=== PATIENT | male | born 1975 | race Caucasian/White ===

== ENCOUNTER 2024-09-13 00:20 | Day surgery (SDC) | payer OTHER, SELFPAY ==
[2024-08-23 13:09] VITALS: BMI 33.4
[2024-09-13 08:18] VITALS: BP 135/99; PULSE 58; RESP 19; TEMP 36.6; O2SAT 97; BMI 34.1
[2024-09-13] MEDS: LACTATED RINGERS 1,000 ML 150 ML IV CONT (08:32)
--- NOTE | 2024-09-13 08:46 | P.PNAN_ITS ---
Anes - Initial Pre Proc Eval Procedure: Operation Date: 09/13/24 09:30 Proposed Procedures p Screening Colonoscopy - Skyler Pollard MD Date/Time: 09/13/24 08:46 Surgeon: Skyler Pollard MD Pre Op Diagnosis: neoplasm screening Patient Data Age: 49 Gender: M Height: 1.88 m Weight: 120.6 kg Last Vital Signs Temp 97.8 F 09/13/24 08:18 Pulse 58 L 09/13/24 08:18 Resp 19 09/13/24 08:18 BP 135/99 H 09/13/24 08:18 Pulse Ox 97 09/13/24 08:18 O2 Del Method Room Air 09/13/24 08:18 Allergies Allergy/AdvReac Type Severity Reaction Status Date / Time No Known Allergies Allergy Mild Verified 09/13/24 08:16 Home Medications Medication Instructions Recorded Confirmed Type cyanocobalamin (vitamin B-12) See Rx Instructions .Route .COMPLEX 08/23/24 09/13/24 History 1,000 mcg tablet fluticasone propionate 50 2 spray intranasal DAILY PRN 08/23/24 09/13/24 History mcg/actuation nasal Allergy Symptoms spray,suspension losartan 50 mg tablet 50 mg PO DAILY 08/23/24 09/13/24 History omeprazole 20 mg capsule,delayed 20 mg PO DAILY 08/23/24 09/13/24 History release semaglutide (weight loss) 0.5 0.5 mg subcut WEEKLY 08/23/24 09/13/24 History mg/0.5 mL subcutaneous pen injector (Coco) Patient hx anesthesia problems: none Family hx anesthesia problems: none Results Review: All pre-operative results and documents have been reviewed as part of the pre- operative evaluation. PMFSH Social History Social History Smoking status: Never smoker Substance use: never Living arrangements: with family Spiritual care concerns: No Anes - Eval Final PreProcedure Day of Procedure 09/13/24 08:46 Patient weight: obese Heart: regular rate and rhythm Lungs: clear to auscultation Airway: Mallampati scale class II Neurological: alert and oriented Last oral intake: >/= 8 hours ASA classification: III Emergent: no Anesthetic plan: proceed Anesthesia type and monitoring: general GIVS and standard monitoring Results Review: All pre-operative results and documents have been reviewed as part of the pre- operative evaluation. Informed Consent: The patient's anesthetic plan and its attendant risks and benefits were discussed with the patient/family/POA. Questions were solicited and answers provided to the satisfaction of the patient/family/POA.
--- NOTE | 2024-09-13 08:52 | PM.HPGS ---
History of Present Illness History of Present Illness Consent: Risks, benefits, and alternatives have been discussed and questions answered. Patient agrees to proceed with procedure. Chief complaint: neoplasm screening Narrative: Kapil Hall is a 49 year old male here for first screening colonoscopy Review of Systems Review of Systems: All systems reviewed & are unremarkable except as noted in HPI and below PMFSH Past Medical History Medical History (Updated 09/13/24 @ 08:53 by Skyler Pollard MD) Colon cancer screening Social History Social History Smoking status: Never smoker Substance use: never Living arrangements: with family Spiritual care concerns: No Meds Home Medications and Allergies Home Medications Medication Instructions Recorded Confirmed Type cyanocobalamin (vitamin B-12) See Rx Instructions .Route .COMPLEX 08/23/24 09/13/24 History 1,000 mcg tablet fluticasone propionate 50 2 spray intranasal DAILY PRN 08/23/24 09/13/24 History mcg/actuation nasal Allergy Symptoms spray,suspension losartan 50 mg tablet 50 mg PO DAILY 08/23/24 09/13/24 History omeprazole 20 mg capsule,delayed 20 mg PO DAILY 08/23/24 09/13/24 History release semaglutide (weight loss) 0.5 0.5 mg subcut WEEKLY 08/23/24 09/13/24 History mg/0.5 mL subcutaneous pen injector (Wegovy) Allergies Allergy/AdvReac Type Severity Reaction Status Date / Time No Known Allergies Allergy Mild Verified 09/13/24 08:16 Vital Signs Vital Signs - 24 hr 09/13/24 08:18 Temperature 97.8 F Pulse Rate 58 L Respiratory Rate 19 Blood Pressure 135/99 H Pulse Oximetry 97 Oxygen Delivery Room Air Exam Const: General: comfortable and no acute distress HENMT: Face/Nose/Sinus: Normal nares present Eyes: General: appearance normal, both eyes and all related structures Neck: Neck: no JVD Resp: Auscultation: clear to auscultation bilaterally Cardio: Rate: regular rate Rhythm: regular rhythm GI: Inspection: non-distended GI Palp: Yes Soft to palpation Skin: General skin exam: normal color Neuro: General: gait normal Speech: normal speech Extrem: General: normal to inspection Psych: Mental Status: mental status grossly normal Assessment and Plan Assessment and plan (1) Colon cancer screening: Code(s): Z12.11 - Encounter for screening for malignant neoplasm of colon Status: Acute Assessment and Plan: colonoscopy
[2024-09-13 09:12] VITALS: BP 147/71; PULSE 78; RESP 16; O2SAT 97
[2024-09-13 09:22] VITALS: BP 129/84; PULSE 74; RESP 20; O2SAT 98
[2024-09-13 09:32] VITALS: BP 114/88; PULSE 71; RESP 18; O2SAT 99
== END 2024-09-13 09:45 | disposition home or self-care (01) ==
PROVIDERS: PCP Family Medicine; Visit Provider Internal Medicine Gastroenterology
PROC: 0DJD8ZZ Inspection of Lower Intestinal Tract, Via Natural or Artificial Opening Endoscopic (ICD-10-PCS; CPT 45378; principal; 2024-09-13 09:30)
DX: Z12.11 Encounter for screening for malignant neoplasm of colon (principal); D12.5 Benign neoplasm of sigmoid colon; K62.1 Rectal polyp; K64.8 Other hemorrhoids; E66.9 Obesity, unspecified; Z68.34 Body mass index [BMI] 34.0-34.9, adult; Z79.85 Long-term (current) use of injectable non-insulin antidiabetic drugs
CPT/HCPCS: 45380; 88305; J2003; J2704; J7120